=== PATIENT | female | born 1965 | race Asian ===

== ENCOUNTER 2018-04-22 23:45 | Emergency (ER) | payer OTHER ==
[2018-04-23 00:40] LABS: ADD MAN DIFF? NO
[2018-04-23 00:41] LABS: BASOPHILS % 0.3 % (0.0-2.0); EOSINOPHILS # 0.2 10^3/ul (0.0-0.5); EOSINOPHILS % 1.8 % (0.0-7.0); HEMATOCRIT 40.9 % (37.0-47.0); LYMPHOCYTES # 2.5 10^3/ul (0.8-2.9); LYMPHOCYTES % 26.2 % (15.0-51.0); MEAN CORPUSCULAR HEMOGLOBIN 30.3 pg (29.0-33.0); MEAN CORPUSCULAR HGB CONC 31.8 g/dl (32.0-37.0); MEAN CORPUSCULAR VOLUME 95.3 fl (82.0-101.0); MEAN PLATELET VOLUME 9.9 fl (7.4-10.4); MONOCYTE # 0.9 10^3/ul (0.3-0.9); NEUTROPHIL # 5.9 10^3/ul (1.6-7.5); NEUTROPHILS % 62.4 % (39.0-77.0); PLATELET COUNT 200 10^3/UL (140-415); RED BLOOD COUNT 4.29 10^6/ul (4.20-5.40); RED CELL DISTRIBUTION WIDTH 12.1 % (11.5-14.5)
[2018-04-23 00:41] LABS: WHITE BLOOD COUNT 9.5 10^3/ul (4.8-10.8)
[2018-04-23 00:58] LABS: ANION GAP 12 (5-13); BLOOD UREA NITROGEN 12 mg/dl (7-20); CARBON DIOXIDE 33 mmol/L (21-31); CHLORIDE 100 mmol/L (97-110); Estimated GFR > 60 mL/min (>60); GLUCOSE 106 mg/dl (70-220); POTASSIUM 3.8 mmol/L (3.5-5.1); SODIUM 145 mmol/L (135-144)
[2018-04-23 01:10] LABS: TROPONIN-I < 0.012 ng/ml (0.000-0.120)
[2018-04-23] MEDS ORDERED: IOHEXOL 100 ML (01:33)
[2018-04-23] MEDS ORDERED: SOD CHLORIDE 0.9% 100 ML (01:33)
[2018-04-23] MEDS: KETOROLAC 30 MG INJ IV (03:11)
== END 2018-04-23 03:39 | disposition home or self-care (01) ==
LOC: E/R 23:45
DX: E78.5 Hyperlipidemia, unspecified (principal)
CPT/HCPCS: 36415; 71045; 71275; 80048; 84484; 85025; 93005; 96374; 99285-25